=== PATIENT | female | born 1970 | race Two or more races ===

== ENCOUNTER 2020-12-14 10:51 | Outpatient (CLI) | payer OTHER | END 2020-12-14 11:00 | disposition home or self-care (01) | LOC: SONOGRAMA 10:51 | PROVIDERS: ATTEND Pathology Anatomic Pathology & Clinical Pathology | DX: D34 Benign neoplasm of thyroid gland (principal); E04.2 Nontoxic multinodular goiter; E04.8 Other specified nontoxic goiter ==

== ENCOUNTER 2021-01-20 07:26 | Outpatient (CLI) | payer OTHER | END 2021-01-20 07:28 | disposition home or self-care (01) | LOC: LAB 07:26 | PROVIDERS: ATTEND Internal Medicine Hematology & Oncology | DX: D50.8 Other iron deficiency anemias (principal); R79.89 Other specified abnormal findings of blood chemistry; I10 Essential (primary) hypertension; R74.02 Elevation of levels of lactic acid dehydrogenase [LDH]; K76.89 Other specified diseases of liver; D63.8 Anemia in other chronic diseases classified elsewhere; D55.0 Anemia due to glucose-6-phosphate dehydrogenase [G6PD] deficiency; D51.1 Vitamin B12 deficiency anemia due to selective vitamin B12 malabsorption with proteinuria; D51.0 Vitamin B12 deficiency anemia due to intrinsic factor deficiency; E03.8 Other specified hypothyroidism; E06.3 Autoimmune thyroiditis; C56.9 Malignant neoplasm of unspecified ovary; R97.8 Other abnormal tumor markers; R97.1 Elevated cancer antigen 125 [CA 125]; R97.0 Elevated carcinoembryonic antigen [CEA]; D70.8 Other neutropenia ==